=== PATIENT | female | born 1970 | race Caucasian/White ===

== ENCOUNTER 2020-01-29 11:04 | Emergency (ER) | payer BC ==
[~2020-01-29] VITALS: Ht 160 cm; Wt 42.0 kg
[2020-01-29 11:07] VITALS: BP 123/76
[2020-01-29 12:22] LABS: CLARITY,URINE SLIGHTLY CLOUDY (Clear); COLOR,URINE YELLOW (Yellow); GLUCOSE, URINE NEGATIVE (Neg); KETONES,URINE NEGATIVE (Neg); LEUKOCYTE ESTERASE ,URINE MODERATE (Neg); NITRITES, URINE POSITIVE (Neg); OCCULT BLOOD,URINE LARGE (Neg); PROTEIN,URINE 100 mg/dl (Neg); UA COLLECTION TYPE VOIDED
[2020-01-29 12:29] LABS: MUCUS STRANDS FEW /LPF (Neg); SQUAMOUS EPITHELIAL CELL,UR FEW /LPF (FEW)
[2020-01-29 12:31] LABS: RBC,URINE TNTC /HPF (0-2)
[2020-01-29 12:32] LABS: WBC,URINE 50-100 /HPF (0-4)
[2020-01-29 12:33] LABS: BACTERIA,URINE 3+ /HPF (Neg); WBC CLUMPS,URINE FEW /HPF (NEGATIVE)
[2020-01-29] MEDS ORDERED: CEFD300C3 PO (12:53)
== END 2020-01-29 13:02 | disposition home or self-care (01) ==
LOC: ER 11:05
DX: N10 Acute pyelonephritis (principal)
CPT/HCPCS: 81001; 87077; 87088; 87186; 99283